=== PATIENT | female | born 1945 | race Caucasian/White ===

== ENCOUNTER → 2019-10-06 15:37 | Outpatient (BNVA) | payer MEDICARE, OTHER, SELFPAY | PROVIDERS: Family Provider Internal Medicine; Visit Provider Internal Medicine | DX: I10 Essential (primary) hypertension (principal); K75.81 Nonalcoholic steatohepatitis (NASH); E11.9 Type 2 diabetes mellitus without complications; K29.70 Gastritis, unspecified, without bleeding | CPT/HCPCS: 80053; 80061; 84443; 85025 ==

== ENCOUNTER 2019-11-10 10:55 | Outpatient (CLI) | payer MEDICARE, OTHER, SELFPAY ==
--- NOTE | 2019-11-10 11:12 | MM_ITS ---
WS: [id number] BILATERAL SCREENING DIGITAL MAMMOGRAM WITH CAD HISTORY: SCREENING COMPARISON: 11/05/2018 and 10/21/2017 Bilateral CC and MLO views submitted. Computer aided detection analyzed. Breast composition: The breasts are heterogeneously dense, which may obscure small masses. No suspici ous masses, microcalcifications or architectural distortion. Calcifications and asymmetries are stabl e. MM/[place] [id number] IMPRESSION: BI-RADS: 2-Benign FOLLOW UP: 1 Year Follow-up
== END 2019-11-10 10:56 | disposition home or self-care (01) ==
LOC: RADSHAW 11:01
PROVIDERS: PCP Internal Medicine; Visit Provider Internal Medicine
DX: Z12.31 Encounter for screening mammogram for malignant neoplasm of breast (principal)
CPT/HCPCS: 77067

== ENCOUNTER → 2020-01-06 11:59 | Outpatient (BNVA) | payer MEDICARE, OTHER, SELFPAY | PROVIDERS: PCP Internal Medicine; Visit Provider Obstetrics & Gynecology | DX: N39.46 Mixed incontinence (principal) | CPT/HCPCS: 80053 ==

== ENCOUNTER 2020-02-21 10:34 | Outpatient (CLI) | payer MEDICARE, OTHER, SELFPAY ==
--- NOTE | 2020-02-21 11:00 | US_ITS ---
WS: [id number] ABDOMINAL ULTRASOUND LIMITED REASON FOR VISIT: R10.11 - Right upper quadrant pain TECHNIQUE: Grayscale and Doppler ultrasound examination of the abdomen. FINDINGS: Pancreas: No mass or ductal dilatation identified. Abdominal aorta and IVC: Atheromatous aorta without aneurysmal dilatation. Normal IVC. Liver: Liver measures 11.9 cm in length. Normal echogenicity and no focal lesion. Gallbladder: Gallbladder wall thickness measures 0.2 mm. No calculi. Right kidney: Right kidney measures 9.4 cm x 5.0 cm x 4.6 cm. No mass, calculus, or hydronephrosis. No ascites. US/US gall bladder [id number] IMPRESSION: No significant abnormality.
== END 2020-02-21 10:35 | disposition home or self-care (01) ==
PROVIDERS: PCP Internal Medicine; Visit Provider Internal Medicine
DX: R10.11 Right upper quadrant pain (principal)
CPT/HCPCS: 76705

== ENCOUNTER → 2020-05-11 11:26 | Outpatient (BNVA) | payer MEDICARE, OTHER, SELFPAY | PROVIDERS: PCP Internal Medicine; Visit Provider Obstetrics & Gynecology | DX: N99.3 Prolapse of vaginal vault after hysterectomy (principal) | CPT/HCPCS: 87635 ==

== ENCOUNTER 2020-05-16 08:13 | Day surgery (SDC) | payer MEDICARE, OTHER, SELFPAY ==
[2020-05-11 12:08] VITALS: BMI 23.2
--- NOTE | 2020-05-11 12:18 | P.ANESASSM_ITS ---
Pre-Anesthetic Assessment Pre-Anesthetic Assessment: Height/Weight: Height 1.6 m Weight 59.421 kg Preop Diagnosis: Vaginal vault prolapse, cystocele, rectocele, enterocele Proposed Procedure: Operation Date: 05/16/20 10:10 Proposed Procedures p Laparoscopic Uterosacral Ligament Suspen 67493 [id number] 55453 N99. N81.11 N81.36 K46.9 N39.46(Not Applicable) - MD colin Gamble Cystoscopy(Not Applicable) - Kleber Camarillo MD s poss Anterior Repair Anterior Colporrhaphy(Not Applicable) - Kleber Camarillo MD s poss Posterior Repair Posterior Colporrhaphy(Not Applicable) - Kleber Camarillo MD Familial anesthetic complications: PONV Social: Social History: No alcohol and No tobacco Exam: Pre-Anes Outpt Exam: alert, oriented x 3, clear to auscultation bilaterally and regular rate & rhythm Airway: MP: 3 Dentition: Full Pulmonary: Comments: allergies CV/HEM: CV/HEM: HTN GI: GI: GERD Comments: gastritis Musc/skel: Musc/skel: Lower Back Pain and OA/DJD Anesthetic Plan: ASA status: 2 Anesthesia: General Risk of > 500 ml blood loss (7ml/kg in children): No PFSH Anesthesia PFSH: Medical History Arthritis Essential (primary) hypertension Gastritis History of basal cell cancer Surgical History S/P dilation and curettage Teen. S/P tonsillectomy and adenoidectomy (~1947) 2 years old. S/P tubal ligation S/P vaginal hysterectomy (~1991) Still has ovaries. Due to heavy bleeding. Performed in [place], [place] S/P wrist surgery Bilateral. Performed in [place], [place]. Status post left hip replacement (~11/2008) Status post right hip replacement (~08/2009) Family History Other Diabetes Heart disease Social History (Updated 05/05/20 @ 17:07 by Kleber Camarillo MD) Smoking and tobacco status: never smoked Alcohol intake: current Adopted: No service: No History of recent travel: No Current gender identity: Female Data Anesthesia CBC & Chem 7: 05/11/20 12:00 05/11/20 12:00 Cardiac Studies: No Data to Display
[2020-05-11 12:19] LABS: Basophils % 0.8 %; Eosinophils # 0.1 10^3/uL (0.0-0.8); Eosinophils % 2.1 %; Hematocrit 41.7 % (37.0-47.0); Hemoglobin 13.8 g/dL (11.5-15.3); Lymphocytes # 1.8 10^3/uL (0.8-4.8); Lymphocytes % 34.2 %; Mean Corpuscular HGB Conc 33.1 g/dL (30.0-36.0); Mean Corpuscular Hemoglobin 31.3 pg (28.0-34.0); Mean Corpuscular Volume 94.6 fL (81-99); Mean Platelet Volume 9.9 fL (7.4-10.4); Monocytes # 0.5 10^3/uL (0.2-0.9); Monocytes % 10.2 %; Neutrophils # 2.72 10^3/uL (1.8-7.7); Neutrophils % 52.3 %; Nucleated Red Blood Cells % 0 %; Platelet Count 225 10^3/cmm (130-400); Red Blood Count 4.41 10^6/uL (4.1-5.3); Red Cell Distribution Width 12.7 % (12.1-15.1); White Blood Count 5.2 10^3/uL (4.0-10.0)
[2020-05-11 12:39] LABS: Anion Gap 14.8 (5-19); Blood Urea Nitrogen 11 mg/dL (8-23); Calcium 9.3 mg/dL (8.5-10.5); Carbon Dioxide 27 mmol/L (22-29); Chloride 101 mmol/L (98-107); Creatinine Clr Calc Pharmacy 51.3266; Glucose 93 mg/dL (65-115); Osmolality Calculated 287 mOsm/kg (285-295); Potassium 3.8 mmol/L (3.5-5.1); Sodium 139 mmol/L (136-145)
[2020-05-15] MEDS: ketorolac 30 mg/mL INJ IVP (08:50)
[2020-05-16] VITALS (14 sets, daily range): BP systolic 115–169; BP diastolic 63–78; PULSE 78–107; RESP 12–18; TEMP 36.2–36.5; O2SAT 94–99; BMI 24.3
[2020-05-16] MEDS: sodium chloride 0.9% 1,000 ML 30 ML IV (08:40)
--- NOTE | 2020-05-16 08:48 | P.HPUD_ITS ---
Surgery/Procedure H&P Update DATE OF PROCEDURE: May 16, 2020 DATE H&P PERFORMED: 05/11/20 H&P UPDATE INFORMATION: I have reviewed H&P completed within last 30 days, I have examined patient prior to procedure, No changes to prior documentation and H&P is in [facility] on date indicated PREOP DIAGNOSIS: Vaginal vault prolapse, cystocele, rectocele, enterocele PLANNED PROCEDURE: Operation Date: 05/16/20 10:10 Proposed Procedures p Laparoscopic Uterosacral Ligament Suspen 38078 [id number] 67652 N99. N81.11 N81.36 K46.9 N39.46(Not Applicable) - Kleber Camarillo MD s Cystoscopy(Not Applicable) - Kleber Camarillo MD s poss Anterior Repair Anterior Colporrhaphy(Not Applicable) - Kleber Camarillo MD s poss Posterior Repair Posterior Colporrhaphy(Not Applicable) - Kleber Camarillo MD
[2020-05-16] MEDS: gabapentin 300 mg Capsule PO (08:59)
[2020-05-16] MEDS: phenazopyridine 100 mg Tablet 200 MG PO (09:01)
--- NOTE | 2020-05-16 11:23 | P.OP_ITS ---
Operative Report Date of procedure: May 16, 2020 Pre-op Diagnosis: Vaginal vault prolapse, cystocele, rectocele, enterocele Post-op Diagnosis: Vaginal vault prolapse with cystocele, rectocele, enterocele Procedure Done: Laparoscopic uterosacral ligament suspension with enterocele repair, Cystoscopy Specimens removed/disposition: None Surgeon: Kleber Camarillo Desk Lieutenant: Blanca Anesthesia: General Estimated blood loss (mL): 20 IV fluids (mL): 1,000 Complications: None Findings: Normal-appearing tubes and ovaries. Normal-appearing appendix. Filmy adhesions between the sigmoid and the vaginal cuff. Second to third-degree vault prolapse, third-degree rectocele, second to third-degree cystocele. Brief History: Patient is a 75-year-old female 1, para 1 who is status post hysterectomy. She presented to the office on 01/06/2020 as a referral from Mely Mosqueda APRN due to prolapse. At the time, she was reporting leaking urine with coughing, sneezing, laughing, etc. She was also reporting urinary urgency symptoms with leaking as well. She was also reporting the feeling that she did not completely empty her bladder. She also reported having an ball at the opening of the vagina and does push in on it to assist with emptying her bladder at times. On exam at that time, she was noted to have a second to third-degree vaginal vault prolapse with second to third-degree cystocele and third-degree rectocele. Treatment options were discussed with her and she wanted to wait at that time. She contacted the office and in 04/2020, reporting that the prolapse had worsened. She reported that the bulge was coming out further at times, especially with standing and straining. Treatment options were reviewed with her at the time and she wished to proceed to surgical treatment for the prolapse. Procedure: Patient was taken to the operating room where general anesthesia was obtained. She was prepped and draped in usual sterile fashion dorsal supine position with legs in Ashvin style stirrups. Sequential compression boots were placed prior to starting the case. Exam under anesthesia was performed. She was found to have a second to third-degree vault prolapse with second to third-degree cystocele an d third-degree rectocele with suspected enterocele. Zhang catheter was inserted. The infraumbilical region was injected with 1% lidocaine with epinephrine. Skin incision was made with a knife and a size 10 trocar and sheath were inserted under direct visualization using an Optiview type technique.. Trocar was removed and replaced with just the scope confirming intra-abdominal placement. The anterior abdominal wall was inspected and noted to be free of adhesions. In the right and left lower quadrants lateral to the inferior epigastric vessels, the skin was injected with 1% lidocaine with epinephrine. Skin incision was made with a knife and a 5 mm trocar and sheath inserted at each of these locations. Approximately 2 cm above the pubic symphysis in the midline, skin was injected with 1% lidocaine with epinephrine. Skin incision was made with a knife and a 5 mm trocar and sheath inserted under direct visualization. Pelvis was thoroughly inspected. Both tubes and ovaries were identified and appeared normal. She had a normal-appearing appendix. She had filmy adhesions from the sigmoid to the vaginal cuff. Using laparoscopic scissors, the adhesions between the sigmoid and the vaginal cuff were taken down sharply. This allowed the sigmoid to be reflected out of the pelvis. Patient was noted to have a large enterocele as well. Using 2-0 silk suture, the peritoneum was picked up starting at the vaginal cuff in a pursestring type fashion, keeping the suture below the level of the ureter. Care was taken not to kink the ureters in the process. Once the suture was martin roddy, it was tied and closed the enterocele. Using EEA sizer, the cephalad most displacement of the vaginal cuff was identified. Starting on the right side, using 0 Ethibond suture, stitch was placed into the uterosacral ligament at the level of the cephalad displacement of the vagina. Care was taken not to incorporate the ureter or sigmoid colon into the suture. This was then secured into the right corner of the vaginal cuff and then tied. On the left side, using 0 Ethibond suture, stitch was placed into the uterosacral ligament at the level of the cephalad displacement of the vagina. Care was taken not to incorporate the ureter or sigmoid colon into the suture. This was then secured into the left corner of the vaginal cuff and tied. This supported the cuff well intra-abdominal he. Zhang catheter was removed and cystoscopy was performed. Bladder was thoroughly inspected and no masses were noted. No suture material was noted within the bladder. Both ureters were noted to be effluxing urine well. Bladder was drained and Zhang catheter reinserted. The abdomen was reinspected and area was noted to be hemostatic. Abdomen was deflated and the sheath removed. The skin was reapproximated using 4-0 Vicryl suture. Skin glue was applied to the incisions. The vagina was inspected. She was noted to have good support of the vaginal cuff. This had essentially eliminated her cystocele and rectocele. At this point she had a first-degree cystocele and a first-degree rectocele. It was felt that further surgical treatment of this was not needed at this time. Patient tolerated the procedure well. Sponge, needle, and instrument counts were correct. Drains: Zhang catheter Postsurgical Status: Patient was transferred recovery room in satisfactory condition.
--- NOTE | 2020-05-16 11:39 | SUR.PHASEI ---
PT AWAKES TO VOICE VERBALLY DENIES PAIN AND NAUSEA AND COLD, VSS IV PATENT ABD SOFT WITH 4 SITES WITH DERMABOND, SCDS ON BILAT
--- NOTE | 2020-05-16 11:59 | P.PCN_ITS ---
PACU note Post-Anesthesia Exam: awake Disposition: admitted
--- NOTE | 2020-05-16 11:59 | PM.PACU ---
PACU note Post-Anesthesia Exam: awake Disposition: admitted
[2020-05-16] MEDS: dextrose 5%-lactated ringers 1,000 ML 125 ML IV (12:31)
[2020-05-16] MEDS: docusate sodium 100 mg Capsule PO (19:39)
[2020-05-17 03:56] VITALS: BP 107/60; PULSE 88; RESP 17; TEMP 36.8
[2020-05-17 05:17] LABS: Hematocrit 33.4 % (37.0-47.0); Hemoglobin 11.2 g/dL (11.5-15.3); Mean Corpuscular HGB Conc 33.5 g/dL (30.0-36.0); Mean Corpuscular Hemoglobin 31.6 pg (28.0-34.0); Mean Corpuscular Volume 94.4 fL (81-99); Mean Platelet Volume 9.8 fL (7.4-10.4); Platelet Count 194 10^3/cmm (130-400); Red Blood Count 3.54 10^6/uL (4.1-5.3); Red Cell Distribution Width 12.6 % (12.1-15.1); White Blood Count 8.4 10^3/uL (4.0-10.0)
[2020-05-17 08:08] VITALS: BP 115/72; PULSE 72; RESP 16; TEMP 36.4; O2SAT 94
[2020-05-17] MEDS: docusate sodium 100 mg Capsule PO (08:19)
[2020-05-17] MEDS: losartan 50 mg Tablet PO (08:19)
[2020-05-17] MEDS: phenazopyridine 100 mg Tablet 200 MG PO (08:19)
--- NOTE | 2020-05-17 10:42 | P.DS_ITS ---
Discharge Providers Date of Discharge: May 17, 2020 Attending Provider at Discharge: Kleber Camarillo MD Primary Care Provider: Santosh Dawson MD Diagnoses at Discharge Discharge Diagnosis (1) Vaginal vault prolapse after hysterectomy: Status: Acute (2) Cystocele: Status: Acute Qualifiers: Cystocele location: midline Qualified Code(s): N81.11 - Cystocele, midline (3) Rectocele: Status: Acute (4) Enterocele: Status: Acute Reason for Visit Reason for Visit: vaginal vault prolapse after hysterectomy Hospital Course Hospital Course Patient is a 75-year-old female 1, para 1 who is postmenopausal and status post hysterectomy. She had presented to the office due to prolapse complaints and leaking urine. She had reported having a bulge at the vaginal opening that have been worsening. She was also leaking urine with coughing, sneezing, laughing, etc. She was also reporting urinary urgency symptoms with leaking. She also reported a feeling that she was not completely emptying her bladder. On exam, she had been found to have a second to third-degree vaginal vault prolapse, second to third-degree cystocele, and 1/3 degree rectocele with suspected enterocele. Treatment options have been discussed and she was presenting for surgical treatment. Patient presented to the hospital on 05/16/2020 for surgery. She had a laparoscopic uterosacral ligament suspension with enterocele repair. Following the vault suspension, the cystocele and rectocele were reduced to no more than a first-degree prolapse of each. As a result anterior and posterior repair were not performed. Overall, following surgery, patient had done well. By the evening, she was tolerating clear liquids without nausea or vomiting. She was able to ambulate that evening without lightheadedness or dizziness. Zhang catheter was removed late evening. Postoperative Day 1. Patient reports doing well this morning. She states her pain is been well controlled and she has not needed anything being on ibuprofen. She is tolerating regular diet this morning without nausea or vomiting. She is ambulating without lightheadedness or dizziness. She is urinating without difficulty. She reports passing flatus. She is requesting to go home. Physical exam: See below. Plan Discharge to home. Discharge instructions discussed with patient. Patient is to follow-up in the office in 2 and 6 weeks following surgery. She is to resume her usual home medications. Physical Exam Const: COMMON NORMALS: no acute distress, average body habitus, alert and well nourished GENERAL APPEARANCE: well developed ORIENTATION/CONSCIOUSNESS: Yes oriented to person, Yes oriented to place and Yes oriented to time Resp: COMMON NORMALS: normal respiratory effort and clear to auscultation bilaterally AUSCULTATION: clear to auscultation bilaterally Cardio: COMMON NORMALS: regular rate, regular rhythm, No gallops present (Cardio), No murmurs present (Cardio) and No rub (Cardio) RATE: regular rate RHYTHM: regular rhythm GI: COMMON NORMALS: Soft to palpation, No hepatosplenomegaly present and no masses INSPECTION: Yes incision (Laparoscopy sites well approximated.) AUSCULTATION: Yes normoactive bowel sounds PALPATION: Yes Soft to palpation, Yes Tenderness to palpation present (GI) (Mild tenderness lower abdomen), Yes No hepatosplenomegaly present and No Hernia present : EXTERNAL FEMALE EXAM: No Hernia present Back/Pelvis: COMMON NORMALS: no CVA tenderness (Bilaterally) Extremity: COMMON NORMALS: no clubbing, cyanosis or edema and no calf tenderness Neuro: SENSORIUM/ORIENTATION: Yes alert, Yes oriented to person, Yes oriented to place and Yes oriented to time Psych: COMMON NORMALS: normal affect MOOD & AFFECT: Yes euthymic mood Urinary Catheter Management^: Zhang: Cath Placed During This Visit: yes, but has since been removed by the nurse Reason for Continuing Indwelling Catheter: Decision to DC Catheter Urinary Catheter Date of Insertion: 05/16/20 Urinary Catheter Time of Insertion: 09:44 Date Urinary Catheter Removed: 05/16/20 Time Urinary Catheter Discontinued: 19:30 Discharge Data Data Completed and Pending: Pending at discharge Category Date Time Status ES surgery / GI i mages Routine Exams 05/16/20 08:26 Taken Labs from last 24 hours 05/17/20 05:02 WBC 8.4 RBC 3.54 L Hgb 11.2 L Hct 33.4 L MCV 94.4 MCH 31.6 MCHC 33.5 RDW 12.6 Plt Count 194 MPV 9.8 Vitals: Last Vital Signs Temp 97.6 F 05/17/20 08:08 Pulse 72 05/17/20 08:08 Resp 16 05/17/20 08:08 BP 115/72 05/17/20 08:08 Pulse Ox 94 03/10/21 08:08 Discharge Plan Discharge Patient Disposition: Home Condition: Stable Prescriptions: Continued pantoprazole 40 mg tablet,delayed release (DR/EC) 40 mg PO DAILY Qty: 90 RF: 3 Premarin 0.3 mg tablet 0.3 mg PO DAILY RF: 0 losartan 50 mg tablet 50 mg PO DAILY Qty: 90 RF: 3 omega-3 fatty acids-vitamin E 1,000 mg capsule See Rx Instructions PO DAILY RF: 0 cholecalciferol (vitamin D3) 1,250 mcg (50,000 unit) capsule See Rx Instructions PO DAILY RF: 0 turmeric 400 mg capsule See Rx Instructions PO DAILY RF: 0 glucosamine avalos dipot-Boswellia 750-50 mg tablet See Rx Instructions PO DAILY RF: 0 zinc 22 mg tablet 22 mg PO DAILY RF: 0 Discharge Orders: Discharge Order (Routine); Ordered 05/17/20 Ordered By: Kleber Camarillo Referrals: Kleber Camarillo MD [Physician] - 05/29/20 8:00 am (Postoperative appointment) Discharge Diet: Regular Discharge Activity: Limit activity as instructed Patient Instructions: Cystoscopy (DC), OB Abdominal Surgery - [facility], OB Discharge Report, OB Food/Drug Interaction Guide Activity Restrictions/Additional Instructions: May use [id number] Tylenol or ibuprofen as needed for pain. May use [id number] Colace or MiraLAX for constipation. Discharge Attestations Time Spent in Discharge Care*: less than 30 min Status at Discharge: Cognitive status at discharge: cognitively intact , Behavioral status at discharge: cooperative , Functional status at discharge: independent ambulation Quality Metrics Clinical Quality Measures During this hospital stay, did patient experience: None Coding Level of Care Code Acute Loading Unit Operator Powder Charging for g Fwd Diagnoses Vaginal vault prolapse after hysterectomy N99.3 Cystocele N81.11 Cystocele location: midline Rectocele N81.6 Enterocele K46.9
[2020-05-17 10:55] VITALS: BP 110/70; PULSE 74; RESP 16; TEMP 36.4; O2SAT 94
[2020-05-17] MEDS: pneumococcal (23 valent) SDV 0.5 mL IM (11:00)
[2020-05-17 11:14] VITALS: BP 110/70; PULSE 74; RESP 16; TEMP 36.4; O2SAT 94
== END 2020-05-17 11:46 | disposition home or self-care (01) ==
LOC: OR 08:14 → OBGYN 11:53
PROVIDERS: PCP Internal Medicine; Visit Provider Obstetrics & Gynecology
PROC: 0USG4ZZ Reposition Vagina, Percutaneous Endoscopic Approach (ICD-10-PCS; CPT 57425; principal; 2020-05-16 10:10)
PROC: 0TJB8ZZ Inspection of Bladder, Via Natural or Artificial Opening Endoscopic (ICD-10-PCS; CPT 52000; 2020-05-16 10:10)
DX: N99.3 Prolapse of vaginal vault after hysterectomy (principal); K46.9 Unspecified abdominal hernia without obstruction or gangrene; I10 Essential (primary) hypertension; M19.90 Unspecified osteoarthritis, unspecified site; Z23 Encounter for immunization
CPT/HCPCS: 57260; 57425; 36415; 80048; 85025; 85027; 86850; 86900; 87086; 90471; 90732; 96365; 96374; J0131; J1100; J1885; J2405; J2704; J3010; J3490; J7030

== ENCOUNTER → 2020-06-26 15:37 | Outpatient (BNVA) | payer MEDICARE, OTHER, SELFPAY | PROVIDERS: PCP Internal Medicine; Visit Provider Obstetrics & Gynecology | DX: N89.8 Other specified noninflammatory disorders of vagina (principal) | CPT/HCPCS: 88305 ==

== ENCOUNTER 2020-12-05 11:02 | Outpatient (CLI) | payer MEDICARE, OTHER, SELFPAY ==
--- NOTE | 2020-12-05 11:06 | MM_ITS ---
WS: [id number] BILATERAL SCREENING DIGITAL MAMMOGRAM WITH CAD HISTORY: SCREENING COMPARISON: 11/30/2019, 11/05/2018 and 10/22/2019 Bilateral CC and MLO views submitted. Computer aided detection analyzed. Breast composition: The breasts are extremely dense, which lowers the sensitivity of mammography. No suspicious masses, microcalcifications or architectural distortion. Scattered asymmetries and calcifi cations within each breast. MM/[id number] IMPRESSION: BI-RADS: 2-Benign FOLLOW UP: 1 Year Follow-up
== END 2020-12-05 11:03 | disposition home or self-care (01) ==
LOC: RADSHAW 11:05
PROVIDERS: PCP Internal Medicine; Visit Provider Internal Medicine
DX: Z12.31 Encounter for screening mammogram for malignant neoplasm of breast (principal); R20.8 Other disturbances of skin sensation; I10 Essential (primary) hypertension
CPT/HCPCS: 77067; 80053; 82607; 82746; 83036; 83550; 84443

== ENCOUNTER → 2021-10-30 16:48 | Outpatient (BNVA) | payer MEDICARE, OTHER, SELFPAY | PROVIDERS: PCP Internal Medicine; Visit Provider Internal Medicine | DX: R51.9 Headache, unspecified (principal); I10 Essential (primary) hypertension | CPT/HCPCS: 80053; 84443; 85025; 85651; 86140 ==

== ENCOUNTER 2021-11-05 08:19 | Outpatient (CLI) | payer MEDICARE, OTHER, SELFPAY ==
--- NOTE | 2021-11-05 08:45 | MR_ITS ---
WS: [id number] MRI HEAD WITH CONTRAST TECHNIQUE: Sagittal T1, T2 axial, T2 axial FLAIR, axial susceptibility weighted imaging, axial diffus ion weighted images, and coronal T2 images were obtained. Pre and post-T1 axial and post T1 coronal i mages. ADC and FSPGR images. CLINICAL INFORMATION: Acute onset of a very severe headache with visual changes. COMPARISON: None. FINDINGS: No evidence restricted diffusion to suggest acute ischemia. Ventricular system and basal cisterns are patent. Minimal small vessel changes. Mild to moderate parenchymal volume loss. Normal posterior fos sa. Normal vascular flow voids at the skull base. No extra-axial fluid collections. No evidence of ma ss or mass effect. Paranasal sinuses are well aerated. Mastoid air cells are well aerated. Prominent perivascular space LEFT basal ganglia. No hemosiderin on susceptibly weighted images. Malka l optic chiasm and pituitary infundibulum. Moderate symmetric atrophy temporal lobes and hippocampal formations. No abnormal intracranial enhancement. Normal dural venous sinuses. MR/MR head wo/w con [id number] IMPRESSION: 1. No evidence of restricted diffusion to suggest acute ischemia. 2. Minimal small vessel changes with mild to moderate parenchymal volume loss. 3. No abnormal intracranial enhancement. 4. No hemosiderin on susceptibly weighted images. 5. No other suspicious findings.
--- NOTE | 2021-11-05 09:30 | MR_ITS ---
WS: [id number] MRA HEAD TECHNIQUE: Axial 3-D TOF images obtained with axial images and axial, sagittal, and coronal 2-D refor matted images. CLINICAL INFORMATION: Acute onset of a very severe headache with visual changes. COMPARISON: None. FINDINGS: Distal vertebral bodies are patent. Basilar artery is patent. Moderate multifocal stenosis involving the LEFT proximal [employer] territory. Normal vascularity to the RIGHT [employer] territory. Both ICAs are patent at the skull base. Tortuous cavernous carotid arteries. Patent anterior communic ating artery. Normal vascularity to the JAMES and MCA territories bilaterally. Otherwise no evidence of flow-limiting stenosis or aneurysm. MR/MR angio head wo con [id number] IMPRESSION: 1. Moderate multifocal stenosis involving the LEFT [employer] territory. Distal [employer] i s patent. 2. Otherwise no evidence of flow-limiting stenosis or aneurysm. 3. Otherwise unremarkable intracranial MRA.
[2021-11-05] MEDS: gadobenate dimeglumine 20 mL vial IV (09:35)
== END 2021-11-05 08:20 | disposition home or self-care (01) ==
LOC: RAD 08:20
PROVIDERS: PCP Internal Medicine; Visit Provider Internal Medicine
DX: R51.9 Headache, unspecified (principal); H53.9 Unspecified visual disturbance
CPT/HCPCS: 70544; 70553

== ENCOUNTER 2021-12-06 12:29 | Outpatient (CLI) | payer MEDICARE, OTHER, SELFPAY ==
--- NOTE | 2021-12-06 13:14 | MM_ITS ---
WS: [id number] BILATERAL 3D TOMOSYNTHESIS DIGITAL SCREENING MAMMOGRAPHY WITH CAD CLINICAL INFORMATION: SCREENING HISTORY: Screening mammogram. No current complaints. COMPARISON: December 05, 2020 TECHNIQUE: Bilateral CC and MLO views. FINDINGS: The breasts are composed of heterogeneous fibroglandular density tissue, which can limit the detectio n of small underlying mass lesions. No suspicious mass, asymmetry, calcifications, or architectural d istortion. No evidence of malignancy. Punctate and lucent centered calcifications. MM/[id number] IMPRESSION: BI-RADS: 2-Benign FOLLOW UP: 1 Year Follow-up Recommend return to annual screening mammography.
== END 2021-12-06 12:30 | disposition home or self-care (01) ==
PROVIDERS: PCP Internal Medicine; Visit Provider Internal Medicine
DX: Z12.31 Encounter for screening mammogram for malignant neoplasm of breast (principal)
CPT/HCPCS: 77063; 77067

== ENCOUNTER → 2022-01-08 11:09 | Outpatient (BNVA) | payer MEDICARE, OTHER, SELFPAY | PROVIDERS: PCP Internal Medicine; Visit Provider Podiatrist Foot & Ankle Surgery | DX: G60.9 Hereditary and idiopathic neuropathy, unspecified (principal); M54.16 Radiculopathy, lumbar region; R20.8 Other disturbances of skin sensation; M20.12 Hallux valgus (acquired), left foot; M20.11 Hallux valgus (acquired), right foot | CPT/HCPCS: 73630; 99204 ==

== ENCOUNTER → 2022-09-16 14:08 | Outpatient (BNVA) | payer MEDICARE, OTHER, SELFPAY | PROVIDERS: PCP Internal Medicine; Visit Provider Podiatrist Foot & Ankle Surgery | DX: G60.9 Hereditary and idiopathic neuropathy, unspecified (principal); M54.16 Radiculopathy, lumbar region; R20.8 Other disturbances of skin sensation; M20.12 Hallux valgus (acquired), left foot; M20.11 Hallux valgus (acquired), right foot; M76.61 Achilles tendinitis, right leg | CPT/HCPCS: 73630; 99213 ==

== ENCOUNTER → 2022-10-07 13:54 | Outpatient (BNVA) | payer MEDICARE, OTHER, SELFPAY | PROVIDERS: PCP Internal Medicine; Visit Provider Nurse Practitioner Family | DX: G60.9 Hereditary and idiopathic neuropathy, unspecified (principal); M54.16 Radiculopathy, lumbar region; R20.8 Other disturbances of skin sensation; M20.12 Hallux valgus (acquired), left foot; M20.11 Hallux valgus (acquired), right foot; M76.61 Achilles tendinitis, right leg; C44.629 Squamous cell carcinoma of skin of left upper limb, including shoulder; L81.4 Other melanin hyperpigmentation; D22.5 Melanocytic nevi of trunk; L85.3 Xerosis cutis; L57.8 Other skin changes due to chronic exposure to nonionizing radiation; Z85.828 Personal history of other malignant neoplasm of skin | CPT/HCPCS: 11102; 99213 ==

== ENCOUNTER → 2022-10-31 09:25 | Outpatient (BNVA) | payer MEDICARE, OTHER, SELFPAY | PROVIDERS: PCP Internal Medicine; Visit Provider Dermatology | DX: C44.629 Squamous cell carcinoma of skin of left upper limb, including shoulder (principal) | CPT/HCPCS: 17262 ==

== ENCOUNTER → 2022-12-24 14:33 | Outpatient (BNVA) | payer MEDICARE, OTHER, SELFPAY | PROVIDERS: PCP Internal Medicine; Visit Provider Nurse Practitioner Family | DX: Z85.828 Personal history of other malignant neoplasm of skin (principal); L82.0 Inflamed seborrheic keratosis; L57.0 Actinic keratosis; L81.4 Other melanin hyperpigmentation; D22.5 Melanocytic nevi of trunk; L85.3 Xerosis cutis; L57.8 Other skin changes due to chronic exposure to nonionizing radiation | CPT/HCPCS: 17000; 17110; 99213 ==

== ENCOUNTER → 2023-12-25 12:52 | Outpatient (BNVA) | payer MEDICARE, OTHER, SELFPAY | PROVIDERS: PCP Internal Medicine; Visit Provider Nurse Practitioner Family | DX: L81.4 Other melanin hyperpigmentation (principal); D22.5 Melanocytic nevi of trunk; L85.3 Xerosis cutis; L57.8 Other skin changes due to chronic exposure to nonionizing radiation; L57.0 Actinic keratosis; L82.1 Other seborrheic keratosis; Z85.828 Personal history of other malignant neoplasm of skin | CPT/HCPCS: 99213 ==